=== PATIENT | female | born 1965 | race Caucasian/White ===

== ENCOUNTER 2016-09-11 12:47 | Emergency (ER) | payer MEDICAID ==
[2013-06-23 08:08] VITALS: BMI 40.1
[~2016-09-11 12:47] MED LIST: BUSPAR5 MG; CELEXA40 MG PO; GLUCOPHAGE500 MG PO; LISINOPRIL-HCTZ1 TA2 PO; NORCO 10/325 TA1 TA1 PO; PEPCID20 MG PO
[2016-09-11 13:23] LABS: APPEARANCE CLEAR (CLEAR); BILIRUBIN NEGATIVE (NEGATIVE); COLOR STRAW (YELLOW); GLUCOSE NEGATIVE (NEGATIVE); KETONE NEGATIVE (NEGATIVE); LEUKOCYTE ESTERASE NEGATIVE (NEGATIVE); NITRITE NEGATIVE (NEGATIVE); PROTEIN NEGATIVE (NEGATIVE); SPECIFIC GRAVITY 1.005 (1.005-1.020); UROBILINOGEN NORMAL (NORMAL)
[2016-09-11 13:39] LABS: BASOPHILS 0.2 % (0-2); EOSINOPHILS 2.3 % (0-7); HEMATOCRIT 44.6 % (36.0-48.0); HEMOGLOBIN 14.5 g/dL (12-16); IMMATURE GRANULOCYTES 0.2 % (0-5); LYMPHOCYTES 31.2 % (15-50); MCH 29.2 pg (26.0-34.0); MCHC 32.5 g/dL (31.0-37.0); MCV 89.7 fL (80.0-100.0); MONOCYTES 8.1 % (2-11); PLATELET COUNT 204 10x3/uL (130-400); RBC 4.97 10x6/uL (4.00-5.40); RDW 12.6 % (11.5-14.5); WBC 6.4 10x3/uL (4.8-10.8)
[2016-09-11 14:01] LABS: ALBUMIN 3.8 g/dL (3.4-5.0); ANION GAP 13.1 mmol/L (8-16); BILIRUBIN - TOTAL 0.38 mg/dL (0.2-1.3); CALCIUM 9.3 mg/dL (8.5-10.1); CARBON DIOXIDE 26.9 mmol/L (21.0-32.0); PROTEIN - SERUM 7.3 g/dL (6.4-8.2)
== END 2016-09-11 16:23 | disposition home or self-care (01) ==
LOC: D.ER 12:47
PROVIDERS: Emergency Medicine
DX: R53.1 Weakness (principal); R55 Syncope and collapse; E11.65 Type 2 diabetes mellitus with hyperglycemia; I10 Essential (primary) hypertension; F41.9 Anxiety disorder, unspecified